=== PATIENT | female | born 1975 | race Caucasian/White ===

== ENCOUNTER 2024-02-01 07:09 | Day surgery (SDC) | payer BC ==
[2024-02-01] MEDS ORDERED: CEFAZOLIN 2 GM-D5W BAG** 2 GM/50 ML ML IV ONE (07:30)
[2024-02-01] MEDS: CEFAZOLIN 2 GM-D5W BAG** 2 GM/50 ML ML IV SCH (07:50)
[2024-02-01] MEDS: TRANEXAMIC 1,000 MG/100ML-NACL 1,000 MG/100 ML PIGGYBACK IV ONE (07:50)
[2024-02-01] MEDS: Lactated Ringers 1,000 ML IV SCH (07:51)
[2024-02-01] MEDS: NEURONTIN PO ONE (07:51)
[2024-02-01] MEDS: celeBREX 100 MG PO ONE (07:51)
[2024-02-01] MEDS: TYLENOL EXTRA STRENGTH 500 MG PO ONE (07:52)
[2024-02-01] MEDS: Decadron 4 MG PO ONE (07:52)
[2024-02-01 08:03] VITALS: TEMP 97.8
[2024-02-01] MEDS ORDERED: Xylocaine-Mpf 2% 5 Ml Vial ONE (08:57)
[2024-02-01] MEDS ORDERED: Versed 2 MG/2 ML Injection ONE (08:57)
[2024-02-01] MEDS ORDERED: Marcaine 0.5%/Epinephrine 10 ML ONE (08:57)
[2024-02-01] MEDS ORDERED: SUBLIMAZE 100 MCG/2 ML ONE ×2 (08:57→09:37)
[2024-02-01] MEDS ORDERED: DIPRIVAN 200 MG/20 ML IV ONE (09:37)
[2024-02-01] MEDS ORDERED: Naropin 0.5% 30 ML VIAL*** 123.125 MG, TORAdol 30 mg Injection*** 15 MG, Epinephrine Pr... IV ONE (09:45)
[2024-02-01] MEDS ORDERED: Zofran 4 MG/2 ML VIAL ONE (10:05)
[2024-02-01] MEDS ORDERED: Lactated Ringers 1,000 ML IV ONE (10:41)
--- NOTE | 2024-02-01 12:27 | XRAY ---
Indication: Total knee replacement. Comparison: September 07, 2023 AP/crosstable lateral right knee demonstrates interval total knee arthroplasty with intact prosthesis, postsurgical soft tissue swelling/soft tissue emphysema, and anterior cutaneous freya. Stable osteopenia. No other bony, articular, or soft tissue abnormalities.
[2024-02-01 13:46] VITALS: BP 136/81; PULSE 85; RESP 16; O2SAT 97
--- NOTE | 2024-02-01 13:56 | OP ---
PROCEDURE DATE/TIME: 02/01/2024 1009 PREOP DIAGNOSES: Right knee degenerative joint disease. POSTOP DIAGNOSES: Right knee degenerative joint disease. PROCEDURE: Right total knee replacement ATTENDING PHYSICIAN: Dom Jones M.D. ROVING DEPARTMENT SUPERVISOR: Georgia Antoine. FINDINGS: Severe patellofemoral and medial compartment degenerative joint disease with bone on bone and large osteophytes. IMPLANTS: Chris Persona size 9 femur right, tibia size E, and 10 mm right medial congruent polyethylene and 32 mm patella with 0.5 mm thick. ANESTHESIA: General plus LMA plus adductor block. ESTIMATED BLOOD LOSS: 100 cc. SPECIMEN: None. DRAIN: None. FLUIDS: Per anesthesia record. TOURNIQUET TIME: minutes. COMPLICATIONS: None. INDICATIONS FOR PROCEDURE: The patient is a 48-year-old white female with painful right knee refractory to conservative care. She wished to have this replaced for pain relief. DESCRIPTION OF PROCEDURE: Patient seen in holding room. Identified the right knee as correct and this initialed by me. She had anesthesia and then 2 gm of Kefzol and 1000 mg of tranexamic acid. She was positioned supine with a bump under her right hip. She had sterile prep and drape to the right lower extremity. Time out is performed by me. Tourniquet was inflated on upper thigh to 250 mm of Mercury. Total tourniquet time was 47 minutes. A midline incision was made medial through the tibia tubercle to about 6 cm above superior pole of the patella. A medial parapatellar approach was made splitting the quadriceps tendon 10%/90%. The patella was everted. This is reamed out 9 mm of bone for residual thickness of 12 mm. The ACL incised. The medial meniscus was released. The lateral meniscus was released. The ACL incised. The joint was drilled in the center of the femoral canal with guide setting 5 of valgus for right knee. The distal 10 mm cut was made. The tibia was then prepared with intramedullary gosia with 5 posterior slope taking 4 mm off of the medial side in neutral varus. The femoral sizing guide was applied and chose size 9 femur in 2 external rotation. The cutting block was then pinned in place. The anterior chamfer and posterior chamfer cuts were made. The menisci were excised. The flexion-extension gaps checked and were equal for 10 mm spacer. A tibial base plate was placed in line with the medial third and tibia tubercle this was trialed with the femur and 10 mm medial congruent polyethylene with good range of motion and stability through flexion and extension. Patellar tracking midline. The lug nuts were drilled out on the femur. The base plate was punched out with the drill and Keel punch. The patella was laid out with the reamer for three holes. The knee was thoroughly irrigated. 60 cc of the ropivacaine solution was injected circumferentially around the back of the knee laterally and anteriorly. Two batches of [employer] regular cement was mixed under vacuum conditions. When a semi-liquid state this was placed on the dried bony surfaces which had been irrigated. The tibial component was applied first and the femoral component next and then knee was set in full extension with a trial 10 mm spacer. The patella button was held with a clamp and then the tourniquet was released. Hemostasis was obtained with electrocautery. Excess cement trimmed off with osteeotome After cement had hardened then excess cement was trimmed off with osteotome and then the stability of this felt best with a 10 mm spacer. Therefore, the 10 mm spacer was locked into place, good range of motion and stability and the knee irrigated again. The medial parapatellar approach was closed with interrupted #2 MaxBraid suture. The subcu with 2-0 Vicryl and the skin with freya. Sterile dressings were applied. Estimated blood loss 100 cc. DISPOSITION: The patient will be weight bearing as tolerated. Go home today if comfortable. She will go home on Percocet 5 mg 1 p.o. q4h PRN script #30. Return in 10-12 days postoperative for staple removal. May shower postoperative day five.
[2024-02-01] MEDS: PERCOCET TABLET 5/325MG PO PRN (15:15)
== END 2024-02-01 15:30 | disposition home or self-care (01) ==
LOC: SDC 07:09 → MED SURG 13:15 → SDC 15:30
PROVIDERS: ATTEND Orthopaedic Surgery
DX: M17.11 Unilateral primary osteoarthritis, right knee (principal)
CPT/HCPCS: 27447; 73560; J0171; J0690; J1885; J2250; J2405; J2704; J2795; J3010; A9270-GY